=== PATIENT | female | born 1940 | race African-American/Black ===

== ENCOUNTER 2016-05-11 08:42 | Outpatient (CLI) | payer MEDICARE, MEDICAID ==
[2016-05-11 12:47] LABS: Anion Gap 19 mmol/L (10-20); BUN (Urea Nitrogen) 20 mg/dL (9.8-20.1); Calc. Creatinine Clearance 0 mL/min (70-130); Calcium 9.3 mg/dL (7.8-10.44); Carbon Dioxide 23 mmol/L (23-31); Chloride 104 mmol/L (98-107); Estimated GFR-MDRD 49; LDL Cholesterol, Calculated 92 mg/dL
[2016-05-11 12:51] LABS: Hemoglobin A1c 7.2 % (4.0-6.0)
== END 2016-05-11 08:43 ==
LOC: NAVSJIPCSP 08:42
PROVIDERS: ATTEND Internal Medicine
DX: E78.5 Hyperlipidemia, unspecified (principal); E11.40 Type 2 diabetes mellitus with diabetic neuropathy, unspecified; N18.2 Chronic kidney disease, stage 2 (mild); Z79.899 Other long term (current) drug therapy
CPT/HCPCS: 36415; 80048; 80061; 83036

== ENCOUNTER 2016-08-20 08:47 | Outpatient (CLI) | payer MEDICARE, OTHER ==
[2016-08-20 12:50] LABS: ALT (SGPT) 7 U/L (8-55); AST (SGOT) 12 U/L (5-34); Albumin 3.6 g/dL (3.4-4.8); Alkaline Phosphatase 90 U/L (40-150); Anion Gap 20 mmol/L (10-20); BUN (Urea Nitrogen) 25 mg/dL (9.8-20.1); Bilirubin, Total 0.3 mg/dL (0.2-1.2); Calc. Creatinine Clearance 0 mL/min (70-130); Calcium 9.1 mg/dL (7.8-10.44); Carbon Dioxide 21 mmol/L (23-31); Cardiac Risk 4.2 (Less than 4.5); Chloride 105 mmol/L (98-107); Cholesterol 135 mg/dl (< 200 Desired); Estimated GFR-MDRD 50; Globulin 3.8 g/dL (2.4-3.5); Glucose 157 mg/dL (83-110); HDL Cholesterol 32 mg/dL (>60 Neg Risk); LDL Cholesterol, Calculated 83 mg/dL; Potassium 4.5 mmol/L (3.5-5.1); Protein, Total 7.4 g/dL (6.0-8.3); Sodium 141 mmol/L (136-145); Triglycerides 100 mg/dL (Less than 150)
[2016-08-20 12:55] LABS: Hemoglobin A1c 6.9 % (4.0-6.0)
[2016-08-20 13:40] LABS: #Basophils 0.1 thou/uL (0.0-0.2); #Eosinphils 0.1 thou/uL (0.0-0.7); #Lymphocytes 2.4 thou/uL (1.20-3.40); #Monocytes 0.4 thou/uL (0.11-0.59); #Neutrophils 4.8 thou/uL (1.40-6.50); %Basophils 0.9 % (0.0-1.0); %Eosinophils 1.7 % (0.0-10.0); %Lymphocytes 30.6 % (21.0-51.0); %Monocytes 4.9 % (0.0-10.0); Hemoglobin 13.7 g/dL (12.0-16.0); Mean Corpuscular HGB CONC 29.9 g/dL (32.0-36.0); Mean Corpuscular Hemoglobin 25.1 pg (27.0-31.0); Mean Corpuscular Volume 84.1 fl (81.0-99.0); Mean Platelet Volume 8.2 fL (7.4-10.4); Platelet Count 188 thou/uL (130-400); RBC Distribution Width 15.1 % (11.5-14.5); Red Blood Cell (RBC) Count 5.44 mill/uL (4.20-5.40); White Blood Cell (WBC) Count 7.8 thou/uL (4.8-10.8)
[2016-08-20 13:43] LABS: Anisocytosis SLIGHT = 6-15 cells (100X) (0-5/hpf); MDiff Complete? YES; PLT Morphology Comment Appears Adequate
[2016-08-21 17:42] LABS: Creatinine, Urine 35.92 mg/dL (47-110); Microalbumin/Creat Ratio 27.8 mg/g (Less than 30)
== END 2016-08-20 08:48 | disposition home or self-care (01) ==
LOC: NAVSJIPCSP 08:47
PROVIDERS: ATTEND Internal Medicine
DX: E11.40 Type 2 diabetes mellitus with diabetic neuropathy, unspecified (principal); I11.9 Hypertensive heart disease without heart failure; I73.9 Peripheral vascular disease, unspecified; Z79.899 Other long term (current) drug therapy
CPT/HCPCS: 36415; 80053; 80061; 82043; 83036; 85025

== ENCOUNTER 2016-11-25 09:30 | Outpatient (CLI) | payer MEDICARE, OTHER ==
[2016-11-25 13:03] LABS: Cardiac Risk 2.9 (Less than 4.5)
[2016-11-25 13:09] LABS: Hemoglobin A1c 6.2 % (4.0-6.0)
== END 2016-11-25 09:31 | disposition home or self-care (01) ==
LOC: NAVSJIPCSP 09:30
PROVIDERS: ATTEND Internal Medicine
DX: E11.40 Type 2 diabetes mellitus with diabetic neuropathy, unspecified (principal); E78.5 Hyperlipidemia, unspecified; I11.9 Hypertensive heart disease without heart failure; Z79.899 Other long term (current) drug therapy
CPT/HCPCS: 36415; 80061; 83036

== ENCOUNTER 2017-05-04 16:01 | Inpatient (IN) | payer MEDICARE, MEDICAID ==
[2017-05-04] MEDS ORDERED: Dextrose 50% Abboject 50 ML SYRINGE SLOW IVP PRN (17:48)
[2017-05-04] MEDS ORDERED: Dextrose 5% in Water 1,000 ML IV PRN (17:48)
[2017-05-04] MEDS: Carvedilol 6.25 MG TAB PO SCH (20:43)
[2017-05-04] MEDS: Atorvastatin Calcium 40 MG TAB PO SCH (20:43)
[2017-05-04] MEDS: Amiodarone 200 MG TAB PO SCH (20:43)
[2017-05-04] MEDS: Gabapentin 300 MG CAP PO SCH (20:44)
[2017-05-04] MEDS: HumaLOG 300 UNITS/3 ML VIAL SC PRN (20:47)
[2017-05-05 05:55] LABS: #Basophils 0.1 thou/uL (0.0-0.2); #Eosinphils 0.1 thou/uL (0.0-0.7); #Lymphocytes 1.2 thou/uL (1.20-3.40); #Monocytes 0.5 thou/uL (0.11-0.59); #Neutrophils 4.4 thou/uL (1.40-6.50); %Basophils 1.3 % (0.0-1.0); %Eosinophils 1.7 % (0.0-10.0); %Lymphocytes 18.4 % (21.0-51.0); %Monocytes 8.1 % (0.0-10.0); %Neutrophils 70.5 % (42.0-75.0); Anion Gap 15 mmol/L (10-20); Anisocytosis MODERATE=16-30 cells (100X) (0-5/hpf); BUN (Urea Nitrogen) 48 mg/dL (9.8-20.1); Calc. Creatinine Clearance 53 mL/min (70-130); Calcium 9.3 mg/dL (7.8-10.44); Carbon Dioxide 32 mmol/L (23-31); Chloride 97 mmol/L (98-107); Estimated GFR-MDRD 34; Glucose 233 mg/dL (83-110); Hemoglobin 11.6 g/dL (12.0-16.0); Hypochromia MODERATE=16-30 cells (100X) (0-5/hpf); MDiff Complete? YES; Mean Corpuscular HGB CONC 29.8 g/dL (32.0-36.0); Mean Corpuscular Hemoglobin 24.8 pg (27.0-31.0); Mean Corpuscular Volume 83.2 fl (81.0-99.0); Ovalocytes SLIGHT = 2-5 cells (100X) (0-1/hpf); PLT Morphology Comment Appears Adequate; Platelet Count 159 thou/uL (130-400); Potassium 4.6 mmol/L (3.5-5.1); RBC Distribution Width 15.3 % (11.5-14.5); Red Blood Cell (RBC) Count 4.69 mill/uL (4.20-5.40); Sodium 139 mmol/L (136-145); Tear Drops SLIGHT = 2-5 cells (100X) (0-1/hpf); White Blood Cell (WBC) Count 6.3 thou/uL (4.8-10.8)
[2017-05-05] MEDS: HumaLOG 300 UNITS/3 ML VIAL SC PRN (07:07)
[2017-05-05] MEDS ORDERED: Insulin NPH/Reg Insulin Hm 300 UNITS/3 ML VIAL SC SCH (09:00)
[2017-05-05] MEDS: Gabapentin 300 MG CAP PO SCH ×3 (09:54→21:00)
[2017-05-05] MEDS: Clopidogrel Bisulfate 75 MG TAB PO SCH (09:55)
[2017-05-05] MEDS: Fish Oil 1,000 MG CAP PO SCH (09:55)
[2017-05-05] MEDS: Famotidine 20 MG TAB PO SCH (09:55)
[2017-05-05] MEDS: Carvedilol 6.25 MG TAB PO SCH ×2 (09:56→21:00)
--- NOTE | 2017-05-05 14:17 | HP ---
DATE OF ADMISSION: 05/04/2017 DATE OF EXAMINATION AND DICTATION: 05/05/2017 CHIEF COMPLAINT: Recent diagnosis of acute systolic congestive heart failure and deconditioning for physical therapy. BRIEF HISTORY: This is a very pleasant 77-year-old overweight -[place] female, who is well k nown to me, who apparently developed shortness of breath at home. This was associated with some left -sided chest pain and was not responding to any treatment, and so she presented to the emergency room after calling her daughter. She was evaluated in the emergency room and diagnosed with acute conges tive heart failure. She had an echocardiogram done, which showed ejection fraction of 40%-50%. She also was noticed to have some nonsustained VT and was continued on carvedilol. She was supposed to b e on amiodarone for nonsustained VT, but she had episodes of bradycardia, and apparently Cardiology r ecommended discontinuation of the amiodarone. Currently, she is doing better. She denies any compla ints. She did develop some acute renal injury and they felt it was due to over diuresis and both her Lasix and lisinopril have been held. She was also evaluated by Dr. Gordon secondary to cardiac dagmar terization showing multivessel coronary artery disease, but he felt that she would not be a very good surgical candidate and wants to manage her medically. PAST MEDICAL HISTORY: 1. Diabetes mellitus, type 2. 2. Hypertension. 3. Dyslipidemia. 4. Peripheral vascular disease. 5. Legal blindness. 6. Obesity. PAST SURGICAL HISTORY: She is status post left AKA and right toe amputations. DISCHARGE MEDICATIONS: 1. Aspirin 81 mg daily. 2. Lipitor 40 mg daily. 3. Carvedilol 6.25 mg b.i.d. 4. Plavix 75 mg daily. 5. Gabapentin 600 mg t.i.d. and 300 at bedtime. 6. Lasix 20 mg daily as needed. She is not supposed to be on amiodarone, according to the discharge summary, but apparently the disch arge list had amiodarone on it. FAMILY HISTORY: Noncontributory to current admission. PSYCHOSOCIAL HISTORY: No documented tobacco, alcohol, or IV drug abuse. Good family support by her daughter. REVIEW OF SYSTEMS: Cardiovascular System: Currently denies any chest pain, shortness of breath, PND , orthopnea, or pedal edema. Respiratory System: Denies any chronic cough, expectoration, or pleuri tic-type chest pain. Gastrointestinal System: Denies any nausea, vomiting, diarrhea, constipation, hematemesis, melena, hematochezia. Genitourinary System: Denies any frequency, urgency, dysuria, or hematuria. Central Nervous System: Generalized weakness. HEENT: No difficulty with speech, visio n, hearing, or swallowing. PHYSICAL EXAMINATION: GENERAL: Very pleasant overweight -[place] female, resting comfortably in no acute distress. She responds appropriately to questions. She is alert, awake, and oriented. She is legally blind. No family at bedside. VITAL SIGNS: She is afebrile, heart rate is 57, respirations 16, oxygen saturation 96% on 2 liters, blood pressure 137/65. HEENT: Normocephalic, atraumatic. NECK: No JVD, thyromegaly, cervical adenopathy, throat exudates. No carotid bruits. CARDIOVASCULAR SYSTEM: S1, S2 plus, bradycardia. RESPIRATORY SYSEM: Normal vesicular breath sounds. ABDOMEN: Soft, obese, nontender, bowel sounds heard in all quadrants. EXTREMITIES: Without cyanosis or clubbing. Left AKA and right toe amputation. CENTRAL NERVOUS SYSTEM: Peripheral neuropathy and generalized weakness. LABORATORY VALUES: From this morning, white count is 6.3, H and H is 11.6 and 39. Sodium 139; potas sium 4.6; BUN and creatinine 48 and 1.77, improving, yesterday it was 58 and 2.5; blood sugars are 26 5, 228, 233, and 235. IMPRESSION: 1. Resolving acute systolic congestive heart failure. 2. Ischemic cardiomyopathy. 3. Multivessel coronary artery disease, not amenable to surgical fixation. 4. Nonsustained ventricular tachycardia, but amiodarone discontinued secondary to episodes of bradyc ardia. 5. Diabetes mellitus, type 2. 6. Hypertension. 7. Dyslipidemia. 8. Peripheral vascular disease. 9. Peripheral neuropathy. 10. Legal blindness, likely secondary to diabetic retinopathy. PLAN: 1. Continue current medications. 2. An 1800 calorie heart healthy ADA diet. 3. Accu-Cheks with sliding scale coverage. 4. Titrate oxygen. 5. DVT and stress ulcer prophylaxis. 6. Decubitus precautions. 7. Routine laboratory values. 8. Monitor cardiovascular status. 9. Monitor renal function. 10. Physical therapy. 11. I discussed with the patient in detail. All questions answered. 12. No family at bedside. 13. Estimated length of stay 7-10 days.
[2017-05-05] MEDS: Amiodarone 200 MG TAB PO SCH (17:32)
[2017-05-05] MEDS: Insulin NPH/Reg Insulin Hm 300 UNITS/3 ML VIAL SC SCH (18:22)
[2017-05-05] MEDS: Acetaminophen 500 MG TAB PO PRN (18:25)
[2017-05-05] MEDS: Enoxaparin Sodium 30 MG/0.3 ML SYRINGE SC SCH (21:00)
[2017-05-05] MEDS: Atorvastatin Calcium 40 MG TAB PO SCH (21:00)
[2017-05-06 06:16] LABS: Anion Gap 12 mmol/L (10-20); BUN (Urea Nitrogen) 40 mg/dL (9.8-20.1); Calc. Creatinine Clearance 63 mL/min (70-130); Calcium 9.5 mg/dL (7.8-10.44); Carbon Dioxide 34 mmol/L (23-31); Chloride 102 mmol/L (98-107); Estimated GFR-MDRD 40; Glucose 79 mg/dL (83-110); Potassium 4.1 mmol/L (3.5-5.1); Sodium 144 mmol/L (136-145)
[2017-05-06] MEDS: Insulin NPH/Reg Insulin Hm 300 UNITS/3 ML VIAL SC SCH ×2 (08:44→17:57)
[2017-05-06] MEDS: Famotidine 20 MG TAB PO SCH (08:45)
[2017-05-06] MEDS: Fish Oil 1,000 MG CAP PO SCH (08:45)
[2017-05-06] MEDS: Clopidogrel Bisulfate 75 MG TAB PO SCH (08:45)
[2017-05-06] MEDS: Carvedilol 6.25 MG TAB PO SCH ×2 (08:45→20:45)
[2017-05-06] MEDS: Gabapentin 300 MG CAP PO SCH ×3 (08:46→20:45)
[2017-05-06] MEDS: HumaLOG 300 UNITS/3 ML VIAL SC PRN (11:28)
--- NOTE | 2017-05-06 13:42 | PRG ---
DATE OF SERVICE: 05/06/2017 SUBJECTIVE: Ms. Peacock is doing well. Denies any complaints, resting comfortably, no family at bedsid e. I discussed with nursing and no concerns. OBJECTIVE: VITAL SIGNS: She is afebrile, heart rate is 50, respirations 20, oxygen saturation 98% on 2 liters, blood pressure is 137/68. CARDIOVASCULAR SYSTEM: S1, S2 plus. RESPIRATORY SYSTEM: Normal vesicular breath sounds. ABDOMEN: Soft, nontender, bowel sounds heard in all quadrants. EXTREMITIES: Shows left AKA. CENTRAL NERVOUS SYSTEM: Generalized weakness. LABORATORY VALUES: Her BUN and creatinine are down to 40 and 1.52 today. Blood sugars are 122, 106, 70, 79 and 203. This is after adding nighttime 70/30 as well. IMPRESSION: 1. Improving systolic congestive heart failure. 2. Improving renal insufficiency. 3. Hypertension, well controlled. 4. Dyslipidemia. 5. Diabetes mellitus type 2, much better control. 6. Peripheral vascular disease. 7. Deconditioning. PLAN: 1. Titrate oxygen. 2. Continue current medications. 3. Physical therapy. 4. 1800-calorie heart healthy ADA diet. 5. DVT and stress ulcer prophylaxis. 6. Decubitus precautions. 7. Routine laboratory values. 8. I discussed with the patient and the nursing in detail and all questions answered.
[2017-05-06] MEDS: Enoxaparin Sodium 30 MG/0.3 ML SYRINGE SC SCH (20:44)
[2017-05-06] MEDS: Atorvastatin Calcium 40 MG TAB PO SCH (20:44)
[2017-05-07 06:15] LABS: Anion Gap 15 mmol/L (10-20); BUN (Urea Nitrogen) 31 mg/dL (9.8-20.1); Calc. Creatinine Clearance 72 mL/min (70-130); Calcium 9.4 mg/dL (7.8-10.44); Carbon Dioxide 29 mmol/L (23-31); Chloride 106 mmol/L (98-107); Estimated GFR-MDRD 47; Glucose 77 mg/dL (83-110); Potassium 4.9 mmol/L (3.5-5.1); Sodium 145 mmol/L (136-145)
[2017-05-07] MEDS: Gabapentin 300 MG CAP PO SCH ×3 (09:16→20:48)
[2017-05-07] MEDS: Famotidine 20 MG TAB PO SCH (09:16)
[2017-05-07] MEDS: Clopidogrel Bisulfate 75 MG TAB PO SCH (09:16)
[2017-05-07] MEDS: Carvedilol 6.25 MG TAB PO SCH ×2 (09:16→20:48)
[2017-05-07] MEDS: Fish Oil 1,000 MG CAP PO SCH (09:16)
[2017-05-07] MEDS: Insulin NPH/Reg Insulin Hm 300 UNITS/3 ML VIAL SC SCH ×2 (09:21→18:04)
--- NOTE | 2017-05-07 10:08 | PRG ---
DATE OF SERVICE: 05/07/2017 SUBJECTIVE: Ms. Peacock is doing well except feeling cold. Denies any concerns or questions. OBJECTIVE: VITAL SIGNS: She is afebrile, heart rate is 57, respirations 20, oxygen saturation is 93% on 1.5 lit ers, it is documented as its room air, but it is not, blood pressure is 142/65. CARDIOVASCULAR: S1, S2 plus. RESPIRATORY: Normal vesicular breath sounds. ABDOMEN: Soft, nontender, bowel sounds heard in all quadrants, obese. EXTREMITIES: Without cyanosis or clubbing. Left AKA. LABORATORY VALUES: Blood sugars are 203, 106, 145, 72, and 116. BUN and creatinine is down to 31 an d 1.32. IMPRESSION: 1. Resolved acute systolic congestive heart failure. 2. Improving renal insufficiency. 3. Diabetes mellitus type 2, well controlled. 4. Hypertension. 5. Dyslipidemia. 6. Peripheral vascular disease. 7. Improving hypoxemia. PLAN: 1. Continue to titrate oxygen. 2. 1800 calorie heart healthy, renal diet. 3. Accu-Cheks with high scale coverage. 4. Deep venous thrombosis and stress ulcer prophylaxis. 5. Decubitus precautions. 6. Routine laboratory values. 7. Physical therapy. 8. No family at bedside.
[2017-05-07] MEDS: Enoxaparin Sodium 30 MG/0.3 ML SYRINGE SC SCH (20:47)
[2017-05-07] MEDS: Atorvastatin Calcium 40 MG TAB PO SCH (20:47)
[2017-05-08 06:11] LABS: Anion Gap 14 mmol/L (10-20); BUN (Urea Nitrogen) 26 mg/dL (9.8-20.1); Calc. Creatinine Clearance 86 mL/min (70-130); Calcium 9.5 mg/dL (7.8-10.44); Carbon Dioxide 30 mmol/L (23-31); Chloride 104 mmol/L (98-107); Estimated GFR-MDRD 57; Glucose 128 mg/dL (83-110); Potassium 4.5 mmol/L (3.5-5.1); Sodium 143 mmol/L (136-145)
[2017-05-08] MEDS: Famotidine 20 MG TAB PO SCH (09:03)
[2017-05-08] MEDS: Clopidogrel Bisulfate 75 MG TAB PO SCH (09:03)
[2017-05-08] MEDS: Fish Oil 1,000 MG CAP PO SCH (09:03)
[2017-05-08] MEDS: Gabapentin 300 MG CAP PO SCH ×3 (09:03→20:36)
[2017-05-08] MEDS: Carvedilol 6.25 MG TAB PO SCH ×2 (09:04→20:36)
[2017-05-08] MEDS: Insulin NPH/Reg Insulin Hm 300 UNITS/3 ML VIAL SC SCH ×2 (09:04→17:13)
[2017-05-08] MEDS: HumaLOG 300 UNITS/3 ML VIAL SC PRN ×2 (11:38→17:12)
--- NOTE | 2017-05-08 16:41 | PRG ---
DATE OF SERVICE: 05/08/2017 SUBJECTIVE: Ms. Peacock is doing well. Denies any complaints except she wants to go home. Family in t he room. OBJECTIVE: VITAL SIGNS: She is afebrile. Heart rate is 54, respirations 18, oxygen saturation 96% on 2 liters and blood pressure 138/52. CARDIOVASCULAR SYSTEM: S1 and S2 plus. RESPIRATORY SYSTEM: Normal vesicular breath sounds. ABDOMEN: Soft and nontender. Bowel sounds heard in all quadrants. EXTREMITIES: Left AKA. IMPRESSION: 1. Resolving systolic congestive heart failure. 2. Resolving adrenal insufficiency. Creatinine is down to 1.12. 3. Diabetes mellitus type 2. One episode of hypoglycemia this morning. 4. Hypertension. 5. Dyslipidemia. 6. Peripheral vascular disease. PLAN: 1. Reduce her oxygen to 1 liter. Again, reinforced the nurses to get her off the oxygen if possible . 2. Accu-Cheks with sliding scale coverage. 3. Deep venous thrombosis and stress ulcer prophylaxis. 4. Decubitus precautions. 5. Physical therapy. 6. Monitor cardiovascular status.
[2017-05-08] MEDS: Atorvastatin Calcium 40 MG TAB PO SCH (20:36)
[2017-05-08] MEDS: Enoxaparin Sodium 30 MG/0.3 ML SYRINGE SC SCH (20:36)
[2017-05-08] MEDS: Acetaminophen 500 MG TAB PO PRN (23:02)
[2017-05-09 06:05] LABS: Anion Gap 12 mmol/L (10-20); BUN (Urea Nitrogen) 23 mg/dL (9.8-20.1); Calc. Creatinine Clearance 83 mL/min (70-130); Calcium 9.4 mg/dL (7.8-10.44); Carbon Dioxide 29 mmol/L (23-31); Chloride 106 mmol/L (98-107); Estimated GFR-MDRD 55; Glucose 148 mg/dL (83-110); Potassium 4.7 mmol/L (3.5-5.1); Sodium 142 mmol/L (136-145)
[2017-05-09] MEDS: Insulin NPH/Reg Insulin Hm 300 UNITS/3 ML VIAL SC SCH ×2 (08:22→17:42)
[2017-05-09] MEDS: Clopidogrel Bisulfate 75 MG TAB PO SCH (08:24)
[2017-05-09] MEDS: Fish Oil 1,000 MG CAP PO SCH (08:24)
[2017-05-09] MEDS: Famotidine 20 MG TAB PO SCH (08:24)
[2017-05-09] MEDS: Gabapentin 300 MG CAP PO SCH ×3 (08:24→20:25)
[2017-05-09] MEDS: Carvedilol 6.25 MG TAB PO SCH ×2 (08:24→20:25)
--- NOTE | 2017-05-09 16:46 | PRG ---
DATE OF SERVICE: 05/09/2017 SUBJECTIVE: Ms. Peacock is doing well. Denies any complaints, resting comfortably. Discussed with jeana boone and I advised them to start titrating her oxygen, because if unable to do so, we will need to ar range for home oxygen. OBJECTIVE: VITAL SIGNS: She is afebrile, heart rate 54, respirations 22, oxygen saturation is 96% on 1 liter, b lood pressure was 153/97. CARDIOVASCULAR SYSTEM: S1, S2 plus. RESPIRATORY SYSTEM: Normal vesicular breath sounds. ABDOMEN: Soft, obese, nontender, bowel sounds heard in all quadrants. EXTREMITIES: Left AKA. CENTRAL NERVOUS SYSTEM: Generalized weakness, stable. LABORATORY VALUES: Sodium 142, potassium 4.7, BUN and creatinine is 23 and 1.15. Blood sugars are 2 16, 231, 148, and 160. IMPRESSION: 1. Diabetes mellitus type 2. 2. Hypertension. 3. Resolving renal insufficiency. 4. Stable systolic congestive heart failure. 5. Hypoxemia. 6. Hypertension. 7. Dyslipidemia. 8. Peripheral vascular disease. 9. Peripheral neuropathy. PLAN: 1. Continue current medications. 2. A 1800 calorie Heart healthy ADA diet. 3. Titrate oxygen. 4. DVT and stress ulcer prophylaxis. 5. Decubitus precautions. 6. Routine laboratory values. 7. Physical therapy. 8. We will discuss with therapy about her progress and anticipated discharge date.
[2017-05-09] MEDS: Enoxaparin Sodium 30 MG/0.3 ML SYRINGE SC SCH (20:25)
[2017-05-09] MEDS: Atorvastatin Calcium 40 MG TAB PO SCH (20:25)
[2017-05-10] MEDS: Insulin NPH/Reg Insulin Hm 300 UNITS/3 ML VIAL SC SCH ×2 (08:22→17:22)
[2017-05-10] MEDS: Carvedilol 6.25 MG TAB PO SCH ×2 (08:23→21:25)
[2017-05-10] MEDS: Gabapentin 300 MG CAP PO SCH ×3 (08:23→21:25)
[2017-05-10] MEDS: Famotidine 20 MG TAB PO SCH (08:23)
[2017-05-10] MEDS: Fish Oil 1,000 MG CAP PO SCH (08:23)
[2017-05-10] MEDS: Clopidogrel Bisulfate 75 MG TAB PO SCH (08:23)
[2017-05-10] MEDS: Acetaminophen 500 MG TAB PO PRN (09:07)
--- NOTE | 2017-05-10 13:41 | PRG ---
DATE OF SERVICE: 05/10/2017 SUBJECTIVE: Ms. Peacock is doing well. Denies any complaints. She is off her oxygen. No concerns or questions. OBJECTIVE: VITAL SIGNS: She is afebrile, heart rate 58, respirations 20, oxygen saturation 94% on room air, blo od pressure was elevated this morning 192/74. CARDIOVASCULAR SYSTEM: S1 and S2 plus. RESPIRATORY SYSTEM: Normal vesicular breath sounds. ABDOMEN: Soft, nontender, bowel sounds heard in all quadrants. EXTREMITIES: Without cyanosis or clubbing. Left AKA. LABORATORY VALUES: Blood sugars are 146, 159, 82, and 121. IMPRESSION: 1. Resolved acute systolic congestive heart failure. 2. Resolved hypoxemia. 3. Improving deconditioning. 4. Diabetes mellitus, type 2. 5. Dyslipidemia. 6. Peripheral vascular disease. PLAN: 1. Recheck laboratory values in the morning. Her renal functions are almost back to normal. 2. Continue current medications. 3. Anticipate discharging her once she is stable from the therapy standpoint. 4. Continue to monitor blood sugars. 5. Ambulatory pulse ox, but she usually moves around in her wheelchair. No family at bedside.
[2017-05-10] MEDS: Enoxaparin Sodium 30 MG/0.3 ML SYRINGE SC SCH (21:25)
[2017-05-10] MEDS: Atorvastatin Calcium 40 MG TAB PO SCH (21:25)
[2017-05-11 05:07] VITALS: BMI 39.6
[2017-05-11 05:50] LABS: #Basophils 0.1 thou/uL (0.0-0.2); #Eosinphils 0.1 thou/uL (0.0-0.7); #Lymphocytes 1.7 thou/uL (1.20-3.40); #Monocytes 0.5 thou/uL (0.11-0.59); #Neutrophils 3.7 thou/uL (1.40-6.50); %Basophils 1.6 % (0.0-1.0); %Eosinophils 2.4 % (0.0-10.0); %Lymphocytes 27.2 % (21.0-51.0); %Monocytes 8.4 % (0.0-10.0); %Neutrophils 60.4 % (42.0-75.0); Anion Gap 14 mmol/L (10-20); BUN (Urea Nitrogen) 23 mg/dL (9.8-20.1); Calc. Creatinine Clearance 80 mL/min (70-130); Calcium 9.3 mg/dL (7.8-10.44); Carbon Dioxide 26 mmol/L (23-31); Chloride 109 mmol/L (98-107); Estimated GFR-MDRD 52; Glucose 100 mg/dL (83-110); Mean Corpuscular HGB CONC 29.9 g/dL (32.0-36.0); Mean Corpuscular Volume 83.7 fl (81.0-99.0); Mean Platelet Volume 9.9 fL (7.4-10.4); Platelet Count 205 thou/uL (130-400); Potassium 4.5 mmol/L (3.5-5.1); RBC Distribution Width 15.6 % (11.5-14.5); Red Blood Cell (RBC) Count 4.78 mill/uL (4.20-5.40); Sodium 144 mmol/L (136-145); White Blood Cell (WBC) Count 6.2 thou/uL (4.8-10.8)
[2017-05-11 07:25] VITALS: BP 170/73; TEMP 98.1
[2017-05-11] MEDS: Carvedilol 6.25 MG TAB PO SCH (08:46)
[2017-05-11] MEDS: Insulin NPH/Reg Insulin Hm 300 UNITS/3 ML VIAL SC SCH (08:46)
[2017-05-11] MEDS: Famotidine 20 MG TAB PO SCH (08:47)
[2017-05-11] MEDS: Acetaminophen 500 MG TAB PO PRN (08:47)
[2017-05-11] MEDS: Gabapentin 300 MG CAP PO SCH ×2 (08:47→14:38)
[2017-05-11] MEDS: Fish Oil 1,000 MG CAP PO SCH (08:47)
[2017-05-11] MEDS: Clopidogrel Bisulfate 75 MG TAB PO SCH (08:47)
--- NOTE | 2017-05-11 13:44 | DIS ---
DATE OF ADMISSION: 05/04/2017 DATE OF DISCHARGE: 05/11/2017 PRINCIPAL DIAGNOSIS: Resolved acute systolic congestive heart failure. SECONDARY DIAGNOSES: 1. Persistent hypoxemia, mainly at night, possibly due to sleep apnea. 2. Diabetes mellitus type 2. 3. Dyslipidemia. 4. Peripheral vascular disease. 5. Hypertension. 6. Legal blindness. 7. Obesity and peripheral neuropathy. COMPLICATIONS: None. ADVERSE REACTIONS: None. PROCEDURES: Physical therapy and occupational therapy. CONSULTATIONS: None. HOSPITAL COURSE: The patient was admitted on 05/05/2017 after being admitted to [facility] with shortness of breath. She was diagnosed with systolic congestive heart failure with ejection fraction of 40%-50%. She also has some nonsustained VT. She was started on amiodarone, but it caus ed bradycardia and Cardiology recommended discontinuation with amiodarone. She was transferred here for therapy and close monitoring. She had also developed some acute renal injury which was also bein g monitored. Her renal functions are pretty much back to normal. She has had no further chest pain or shortness of breath. She continues to need some oxygen and arrangements are being made to final. Evaluate her one more time on room air and if she needs oxygen, we will arrange for it. She has gisella ched maximum medical improvement from the therapy standpoint and she was deemed stable for discharge. DISCHARGE PHYSICAL EXAMINATION: VITAL SIGNS: On the day of discharge, she is afebrile. Heart rate is 54, respirations 17, oxygen sa turation 93% on 2 liters and just checked it on room air and it is 85%, blood pressure is 170/73. CARDIOVASCULAR SYSTEM: S1, S2 plus. RESPIRATORY SYSTEM: Normal vesicular breath sounds. ABDOMEN: Soft, nontender, bowel sounds heard in all quadrants. EXTREMITIES: Without cyanosis or clubbing. Left AKA. CENTRAL NERVOUS SYSTEM: Generalized weakness. LABORATORY VALUES: White count is 6.2, hemoglobin and hematocrit is 12 and 40. Sodium 144, potassiu m 4.5, BUN and creatinine is 23 and 1.22. Blood sugars are 118, 82, 95, and 105. DISCHARGE MEDICATIONS: 1. Aspirin 81 mg daily. 2. Lipitor 40 mg daily. 3. Carvedilol 6.25 mg b.i.d. I am going to increase that to 12.5 mg b.i.d. 4. Plavix 75 mg daily. 5. Pepcid 20 mg daily, which will be discontinued. 6. Neurontin 600 mg t.i.d. 7. Insulin 70/30, 15 units in the evening and 40 units in the morning. 8. We will add HCTZ 25 mg daily. DISCHARGE INSTRUCTIONS: We will arrange her oxygen 2 liters via nasal cannula. We will arrange outp atient sleep study. She is to follow up in my office in a week's time. She is to call me with any q uestions or concerns. There is family at the bedside and I informed them of the plan. Discussed wit h nursing as well.
[2017-05-12] MEDS ORDERED: Hydrochlorothiazide 25 MG TAB PO SCH (09:00)
== END 2017-05-11 17:10 | disposition home or self-care (01) | DRG 947 ==
LOC: NAV ACUTE 16:01
PROVIDERS: ADMIT Internal Medicine; ATTEND Internal Medicine
DX: R53.81 Other malaise (principal); I50.23 Acute on chronic systolic (congestive) heart failure; I47.2 Ventricular tachycardia; E11.9 Type 2 diabetes mellitus without complications; Z89.612 Acquired absence of left leg above knee; I25.10 Atherosclerotic heart disease of native coronary artery without angina pectoris; I73.9 Peripheral vascular disease, unspecified; H54.8 Legal blindness, as defined in USA; I11.0 Hypertensive heart disease with heart failure
CPT/HCPCS: 36415; 36416; 80048; 85025; G8978-GP-CJ; G8979-GP-CI; J1650